=== PATIENT | female | born 1940 | race Caucasian/White ===

== ENCOUNTER 2019-06-21 15:40 | Emergency (ER) | payer MEDICARE, OTHER ==
[2019-06-21 15:54] VITALS: BP 175/69
[2019-06-21] MEDS ORDERED: LORazepam 2 MG/ML SDV IVPUSH ONE (16:28)
--- NOTE | 2019-06-21 16:59 | EDM.PDOC ---
ED HPI GENERAL MEDICAL PROBLEM - General Chief Complaint: Bite:Animal, Insect Stated Complaint: WASP Time Seen by Provider: 06/21/19 16:00 Source of Information: Reports: Patient, EMS, Family History Limitations: Reports: No Limitations - History of Present Illness INITIAL COMMENTS - FREE TEXT/NARRATIVE: 79-year-old female was stung underneath her chin by a wasp a couple hours ago, started to feel lightheaded, short of breath and she could not see. She had an old EpiPen but did not give it to her herself, instead her took her to the clinic. On arrival she was noted to have a rash and shortness of breath so was given subcutaneous epinephrine and Benadryl. EMS was called, she continued to have symptoms in route so was given a second dose of epinephrine as well as a second dose of Benadryl. Her shortness of breath is gone, but now she feels shaky and tremulous, the rash is still persistent but improved. Onset: Sudden Duration: Hour(s): (Within the last 2 hours) Location: Reports: Generalized Associated Symptoms: Reports: Malaise, Shortness of Breath, Weakness, Other ( Shaky legs). Denies: Confusion, Chest Pain, Cough - Related Data Allergies Allergy/AdvReac Type Severity Reaction Status Date / Time Latex, Natural Rubber Allergy Intermediate Redness Verified 09/02/16 05:48 Penicillins Allergy Intermediate Rash Verified 09/02/16 05:48 morphine Allergy Confusion Verified 09/02/16 05:48 Home Meds: Home Meds *Co Q 10 1 tab PO DAILY 11/30/15 [History] Ascorbic Acid [Vitamin C] 1 tab PO DAILY 11/30/15 [History] Cholecalciferol (Vitamin D3) [Vitamin D3] 2 tab PO DAILY 11/30/15 [History] Furosemide 20 mg PO BEDTIME 11/30/15 [History] Potassium Chloride 1 tab PO BEDTIME 11/30/15 [History] Vitamin E 1 tab PO DAILY 11/30/15 [History] Allopurinol [Zyloprim] 150 mg PO DAILY 08/29/16 [History] Calcium Carbonate [Oyster Shell Calcium] 1,000 mg PO DAILY 08/29/16 [History] EPINEPHrine [Epipen] 0.3 mg IM ONETIME PRN 08/29/16 [History] L.acidoph,Paracasei, B.lactis [Probiotic] 1 tab PO DAILY 08/29/16 [History] Redford-3/DHA/Epa/Fish Oil [Redford-3 Fish Oil Softgel] 1 tab PO DAILY 08/29/16 [ History] Triamcinolone Acetonide [Triamcinolone Acetonide 0.1% Crm] 1 applic TOP BID PRN 08/29/16 [History] Acetaminophen [Tylenol] 650 mg PO Q4H PRN #0 tablet 09/04/16 [Rx] Acetaminophen/HYDROcodone [[place] 325-5 MG] 1 - 2 tab PO Q4H PRN #40 tablet 09/04 [Rx] Past Medical History HEENT History: Reports: Cataract, Impaired Vision, Macular Degeneration, Otitis Media Cardiovascular History: Reports: High Cholesterol Gastrointestinal History: Reports: Other (See Below) Other Gastrointestinal History: colitis Genitourinary History: Reports: None 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: Dysfunctional Uterine Bleeding, Musculoskeletal History: Reports: Gout, Osteoarthritis Endocrine/Metabolic History: Reports: Obesity/BMI 30+ Hematologic History: Reports: Anemia, Iron Deficiency Dermatologic History: Reports: None - Infectious Disease History Infectious Disease History: Reports: Chicken Pox, Measles - Past Surgical History Head Surgeries/Procedures: Reports: None HEENT Surgical History: Reports: Adenoidectomy, Cataract Surgery, Tonsillectomy , Other (See Below) GI Surgical History: Reports: Colonoscopy, Hernia Repair/Other, Small Bowel Female Surgical History: Reports: Breast Biopsy, D&C, Hysterectomy, Salpingo- Oophorectomy Endocrine Surgical History: Reports: None Neurological Surgical History: Reports: None Musculoskeletal Surgical History: Reports: None Oncologic Surgical History: Reports: Biopsy of Breast Dermatological Surgical History: Reports: None Social & Family History - Family History Family Medical History: Noncontributory HEENT: Reports: Cataract Cardiac: Reports: Other (See Below) Other Cardiac Family History: Dad rom massive heart attack : Reports: Diabetic Nephropathy Endocrine/Metabolic: Reports: Diabetes, Type I Oncologic: Reports: Other (See Below) Other Oncologic Family History: Mom had stomache CA - Tobacco Use Smoking Status *Q: Never Smoker - Caffeine Use Caffeine Use: Reports: Coffee ED ROS GENERAL - Review of Systems Review Of Systems: See Below Constitutional: Reports: Malaise. Denies: Fever, Chills HEENT: Reports: No Symptoms Respiratory: Reports: Shortness of Breath, Wheezing, Cough Cardiovascular: Reports: Lightheadedness. Denies: Chest Pain GI/Abdominal: Denies: Nausea, Vomiting : Reports: No Symptoms Skin: Reports: Erythema (Widespread erythematous macular rash on the trunk and extremities) Neurological: Reports: Dizziness, Tremors, Weakness, Other (Near syncope). Denies: Headache ED EXAM, ANIMAL BITE - Physical Exam Exam: See Below Exam Limited By: No Limitations General Appearance: Alert, Anxious, Mild Distress, Other (Looks fairly uncomfortable but vitals are stable) Eye Exam: Bilateral Eye: Other (Slight periorbital edema) Throat/Mouth: Normal Inspection Neck: Non-Tender Respiratory/Chest: No Respiratory Distress, Lungs Clear Cardiovascular: Regular Rate, Rhythm GI/Abdominal: Soft, Non-Tender Extremities: Other (No significant dependent edema, widespread macular erythematous rash is present) Neurological: Alert, No Motor/Sensory Deficits Psychiatric: Anxious Course - Vital Signs Last Recorded V/S: Last Vital Signs Temp 96.8 F 06/21/19 16:45 Pulse Resp 20 06/21/19 16:45 BP 175/69 H 06/21/19 16:45 Pulse Ox 98 06/21/19 16:45 - Orders/Labs/Meds Meds: Medications Discontinued Medications Generic Name Dose Route Start Last Admin Trade Name Sujey PRN Reason Stop Dose Admin Acetaminophen 1,000 mg 06/21/19 17:21 06/21/19 17:27 Tylenol Extra Strength PO 06/21/19 17:22 1,000 mg ONETIME ONE Administration Lorazepam 0.25 mg 06/21/19 16:28 06/21/19 16:34 Ativan IVPUSH 06/21/19 16:29 0.25 mg ONETIME ONE Administration - Re-Assessments/Exams Free Text/Narrative Re-Assessment/Exam: 06/21/19 17:54 Patient continued to slowly improve while in the emergency room, she did continue to have irritation and spasms in her leg so was given 0.25 mg of IV Ativan. Over the course of the next hour she calmed down and continued to feel better, developed no more shortness of breath. Departure - Departure Time of Disposition: 18:10 Disposition: Home, Self-Care 01 Clinical Impression: Allergic reaction to bee sting - Discharge Information Instructions: Insect Bite, Adult, [id number] Referrals: PCP,None [Primary Care Provider] - Forms: ED Department Discharge Care Plan Goals: Rest tonight, you can repeat Benadryl 25-50 mg every 6 hours if you continue to have itching. Return to the emergency room at any time if you develop shortness of breath or other concerns.
[2019-06-21] MEDS ORDERED: Acetaminophen 500 MG Tab PO ONE (17:21)
== END 2019-06-21 18:15 | disposition home or self-care (01) ==
LOC: JP.ED 15:40
DX: T63.441A Toxic effect of venom of bees, accidental (unintentional), initial encounter (principal); E78.00 Pure hypercholesterolemia, unspecified; M19.90 Unspecified osteoarthritis, unspecified site; Z91.040 Latex allergy status; E66.9 Obesity, unspecified; Z68.30 Body mass index [BMI] 30.0-30.9, adult; Z88.0 Allergy status to penicillin; Z88.5 Allergy status to narcotic agent; Z79.899 Other long term (current) drug therapy; Z98.890 Other specified postprocedural states; Z90.721 Acquired absence of ovaries, unilateral; Z86.2 Personal history of diseases of the blood and blood-forming organs and certain disorders involving the immune mechanism
CPT/HCPCS: 96374; 99282; A9270; J2060; 99283

== ENCOUNTER 2020-12-27 07:30 | Day surgery (SDC) | payer MEDICARE, OTHER ==
[2020-12-27] MEDS ORDERED: Midazolam 1 MG/ML 2 ML SDV ONE (08:20)
[2020-12-27] MEDS ORDERED: fentaNYL 100 MCG/2 ML SDV ONE (08:20)
[2020-12-27] MEDS ORDERED: Propofol 200 MG/20 ML SDV ONE ×2 (08:20→09:43)
[2020-12-27] MEDS ORDERED: Dextrose 5%-Lactated Ringers 1,000 ML IV SCH (08:30)
[2020-12-27 10:47] VITALS: BP 149/72; PULSE 69
--- NOTE | 2020-12-30 16:24 | OR ---
DATE OF PROCEDURE: 12/27/2020 SURGEON: Miky Tillman MD PREOPERATIVE DIAGNOSES: History of right colectomy and previous colon polyp formation. POSTOPERATIVE DIAGNOSIS: Single recurrent polyp within mid rectum. OPERATIVE PROCEDURE: Flexible colonoscopy with polypectomy by snare technique. ANESTHESIA: IV sedation. INDICATION FOR PROCEDURE: An 80-year-old female presenting with a followup colonoscopy. She has previous history of right colectomy, which sounds as though it was related to a complication related to an attendant incisional hernia, but she also has history of colon polyps. Plan is to proceed with colonoscopy with polypectomy as indicated. Potential risks including bleeding and perforation were discussed, and the patient wishes to proceed. DETAILS OF PROCEDURE: The patient was taken to the operating room and placed in a left lateral decubitus position. IV sedation was administered, after which the initial digital rectal exam was performed and was unremarkable. Colonoscope was then passed into the rectum with retroflexion revealing uncomplicated hemorrhoidal columns. Scope was eventually passed to the level of the ileocolic anastomosis in the proximal transverse colon. The prep was generally quite good with only small amount of liquid stool present. There were no diverticula or areas of colitis. A single polyp was noted at 10 cm from the dentate line, i.e., in the mid rectum. This measured around 8 mm. This was encircled with cautery snare and excised and sent for histologic evaluation. Good hemostasis at the cautery snare site was noted, and the procedure then concluded. The polyp will most likely be a benign adenomatous polyp. Assuming that is the case, a followup colonoscopy would be appropriate in 3 years if her health remains good. If this is a hyperplastic polyp on the other hand, she probably would not qualify for further colonoscopies unless specific indications arise. Miky Tillman MD /[id number]
== END 2020-12-27 11:10 | disposition home or self-care (01) ==
LOC: JP.SDS 07:30
PROVIDERS: ATTEND Surgery
DX: Z12.11 Encounter for screening for malignant neoplasm of colon (principal); K62.1 Rectal polyp; I10 Essential (primary) hypertension; R79.89 Other specified abnormal findings of blood chemistry; E66.9 Obesity, unspecified; Z90.49 Acquired absence of other specified parts of digestive tract; Z86.010 Personal history of colon polyps; Z98.0 Intestinal bypass and anastomosis status; Z88.0 Allergy status to penicillin; Z91.040 Latex allergy status; Z88.5 Allergy status to narcotic agent; Z91.030 Bee allergy status; Z68.31 Body mass index [BMI] 31.0-31.9, adult
CPT/HCPCS: 45385; J2250; J2704; J3010; J7121